=== PATIENT | female | born 2000 | race Caucasian/White ===

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

== ENCOUNTER → 2023-01-18 | Outpatient (REF) | payer OTHER ==
[2023-01-18 15:25] LABS: GC DNA AMPLIFICATION NEGATIVE (NEGATIVE)
== END ==
LOC: M LAB REF 13:02
PROVIDERS: ATTEND Registered Nurse
DX: Z11.3 Encounter for screening for infections with a predominantly sexual mode of transmission (principal)

== ENCOUNTER → 2023-10-14 | Outpatient (REF) | payer OTHER ==
[2023-10-14 15:13] LABS: BASO # 0.1 10^3/uL (0.0-0.2); BASO % 0.8 % (0.0-1.0); EOS # 0.1 10^3/uL (0.0-0.5); EOS % 1.6 % (0.0-3.0); HEMOGLOBIN 13.2 g/dl (12.0-15.5); LYMPH # 1.9 10^3/uL (1.5-5.0); LYMPH % 24.1 % (24.0-44.0); MEAN CORPUSCULAR HEMOGLOBIN 29.7 pg (27.0-33.0); MEAN CORPUSCULAR VOLUME 90.1 fl (80.0-96.0); MONO # 0.6 10^3/uL (0.0-0.8); MONO % 7.4 % (2.0-8.0); NEUTROPHILS # 5.1 10^3/uL (1.5-8.5); NEUTROPHILS % 65.8 % (36.0-66.0); PLATELET COUNT, AUTOMATED 309 10^3/uL (150-450); RED BLOOD COUNT 4.44 10^6/uL (4.00-5.40); WHITE BLOOD COUNT 7.7 10^3/uL (4.0-10.0)
[2023-10-14 15:24] LABS: INR 1.11; PARTIAL THROMBOPLASTIN TIME 33.8 SECONDS (24.8-34.2)
[2023-10-14 15:41] LABS: ALBUMIN 3.8 G/DL (3.2-5.2); ALKALINE PHOSPHATASE 43 U/L (46-116); ALT/SGPT 32 U/L (7.0-40); AST/SGOT 24 U/L (<34); BILIRUBIN,TOTAL 0.4 MG/DL (0.3-1.2); BLOOD UREA NITROGEN 8 MG/DL (9-23); CALCIUM LEVEL 9.9 MG/DL (8.5-10.1); CARBON DIOXIDE LEVEL 26 MMOL/L (20-31); CHLORIDE LEVEL 105 MMOL/L (98-107); CREATININE FOR GFR 0.69 MG/DL (0.55-1.30); GLOMERULAR FILTRATION RATE > 60.0 (>60); GLUCOSE, FASTING 85 MG/DL (60-100); IRON (FE) 124 UG/DL (50-170); POTASSIUM SERUM 3.8 MMOL/L (3.5-5.1); SODIUM LEVEL 138 MMOL/L (136-145); TOTAL IRON BINDING CAPACITY 326 UG/DL (250-425); TOTAL PROTEIN 6.6 G/DL (5.7-8.2)
[2023-10-14 15:43] LABS: FERRITIN 28.9 NG/ML (7.3-270.7); FREE T4 0.99 NG/DL (0.89-1.76); HCG, SERUM QUALITATIVE NEGATIVE (NEGATIVE); THYROID STIMULATING HORMONE 0.569 uIU/ML (0.55-4.78)
== END ==
LOC: M LAB REF 14:56 → M LABDRAWP 14:56
PROVIDERS: ATTEND Nurse Practitioner Family
DX: N92.0 Excessive and frequent menstruation with regular cycle (principal)

== ENCOUNTER → 2023-11-05 | Outpatient (CLI) | payer OTHER | LOC: M WHC 12:15 | PROVIDERS: ATTEND Nurse Practitioner Family | DX: N92.0 Excessive and frequent menstruation with regular cycle (principal) ==

== ENCOUNTER 2024-03-12 18:21 | Inpatient (IN) | payer BC, MEDICAID, OTHER ==
[~2024-03-12] VITALS: Ht 157.5 cm; Wt 50.9 kg
[2024-03-12 19:09] LABS: HEMATOCRIT 39.1 % (36.0-47.0); HEMOGLOBIN 13.3 g/dl (12.0-15.5); MEAN CORPUSCULAR HEMOGLOBIN 30.4 pg (27.0-33.0); MEAN CORPUSCULAR VOLUME 89.3 fl (80.0-96.0); PLATELET COUNT, AUTOMATED 320 10^3/uL (150-450); RED BLOOD COUNT 4.38 10^6/uL (4.00-5.40); WHITE BLOOD COUNT 13.5 10^3/uL (4.0-10.0)
[2024-03-12 19:31] LABS: AMPHETAMINES LEVEL URINE NEGATIVE (NEGATIVE); BARBITURATES URINE NEGATIVE (NEGATIVE); BENZODIAZEPINES URINE NEGATIVE (NEGATIVE); COCAINE METABOLITE URINE NEGATIVE (NEGATIVE); METHADONE URINE NEGATIVE (NEGATIVE); OPIATES URINE NEGATIVE (NEGATIVE); PHENCYCLIDINE URINE NEGATIVE (NEGATIVE)
[2024-03-12 19:34] LABS: CANNABINOIDS URINE POSITIVE (NEGATIVE); ETHYL ALCOHOL (ETHANOL) 0.004 % (0.000-0.010)
[2024-03-12 19:35] LABS: SALICYLATE LEVEL < 3.0 MG/DL (<30)
[2024-03-12 19:36] LABS: ALBUMIN 4.8 G/DL (3.2-5.2); ALKALINE PHOSPHATASE 50 U/L (46-116); ALT/SGPT 18 U/L (7.0-40); AST/SGOT 15 U/L (<34); BILIRUBIN,DIRECT 0.2 MG/DL (<0.4); BILIRUBIN,TOTAL 0.7 MG/DL (0.3-1.2); BLOOD UREA NITROGEN 9 MG/DL (9-23); CALCIUM LEVEL 10.1 MG/DL (8.5-10.1); CARBON DIOXIDE LEVEL 22 MMOL/L (20-31); CHLORIDE LEVEL 106 MMOL/L (98-107); CREATININE FOR GFR 0.69 MG/DL (0.55-1.30); GLOMERULAR FILTRATION RATE > 60.0 (>60); GLUCOSE, FASTING 84 MG/DL (60-100); POTASSIUM SERUM 3.7 MMOL/L (3.5-5.1); SODIUM LEVEL 137 MMOL/L (136-145); TOTAL PROTEIN 7.6 G/DL (5.7-8.2)
[2024-03-12 19:37] LABS: THYROID STIMULATING HORMONE 1.078 uIU/ML (0.55-4.78)
[2024-03-12] MEDS ORDERED: MOM 30ML SUSPENSION UDC PO PRN (20:45)
[2024-03-12] MEDS ORDERED: MAALOX 30 ML SUSP *UDC PO PRN (20:45)
[2024-03-12] MEDS ORDERED: IBUPROFEN 400MG TAB PO PRN (20:45)
[2024-03-12] MEDS ORDERED: ACETAMINOPHEN TAB 650MG DOSE (2X325MG) PO PRN (20:45)
[2024-03-12] MEDS ORDERED: OLANZapine 5 MG TAB PO PRN (20:45)
[2024-03-12] MEDS ORDERED: FLUO-290 PO (22:38)
[2024-03-12] MEDS ORDERED: HYDR1CAP25 PO (22:38)
[2024-03-12] MEDS ORDERED: ARIP10TA32 PO (22:38)
[2024-03-12] MEDS ORDERED: HOME MED LIST COMPLETE! XX SCH (22:40)
[2024-03-12 22:41] VITALS: BP 102/64; TEMP 98; O2SAT 99
[2024-03-12] MEDS: traZODone 50 MG TAB PO PRN (22:47)
[2024-03-13 06:21] VITALS: BP 100/60; TEMP 97; O2SAT 99
[2024-03-13] MEDS: NICOTINE 14 MG/24 HR TRANSDERMAL TD PRN (08:48)
[2024-03-13 16:30] VITALS: BP 120/65; TEMP 98.8; O2SAT 100
[2024-03-13] MEDS: FLUoxetine 20MG CAP PO SCH (21:37)
[2024-03-13] MEDS: ARIPiprazole 10 MG TAB PO SCH (21:37)
[2024-03-14 06:49] VITALS: BP 113/55; TEMP 97.9; O2SAT 98
[2024-03-14] MEDS: diphenhydrAMINE 25MG CAP PO PRN (12:04)
[2024-03-14 15:59] VITALS: BP 131/67; TEMP 98.8; O2SAT 98
[2024-03-15 06:32] VITALS: BP 117/58; TEMP 98.9; O2SAT 97
[2024-03-15 16:07] VITALS: BP 118/61; TEMP 98.9; O2SAT 100
[2024-03-16 06:13] VITALS: BP 126/72; TEMP 98; O2SAT 99
== END 2024-03-16 11:39 | disposition home or self-care (01) | DRG 753 ==
LOC: M ED 18:21 → M ED INP 20:43 → M PSY 22:20
PROVIDERS: ADMIT Psychiatry & Neurology Psychiatry; ATTEND Psychiatry & Neurology Psychiatry
DX: F31.81 Bipolar II disorder (principal); F43.25 Adjustment disorder with mixed disturbance of emotions and conduct; F17.200 Nicotine dependence, unspecified, uncomplicated; R45.851 Suicidal ideations; Z79.899 Other long term (current) drug therapy

== ENCOUNTER → 2025-01-14 | Outpatient (CLI) | payer OTHER ==
[~2025-01-14] MED LIST changes: +ARIP10TA63 PO; +FLUO-290 PO; +HYDR1CAP25 PO
[2025-01-14 17:14] LABS: BASO # 0.1 10^3/uL (0.0-0.2); BASO % 1.0 % (0.0-1.0); EOS # 0.2 10^3/uL (0.0-0.5); EOS % 1.8 % (0.0-3.0); LYMPH # 1.8 10^3/uL (1.5-5.0); LYMPH % 21.5 % (24.0-44.0); MONO # 0.7 10^3/uL (0.0-0.8); MONO % 8.8 % (2.0-8.0); NEUTROPHILS # 5.5 10^3/uL (1.5-8.5); NEUTROPHILS % 66.7 % (36.0-66.0); PLATELET COUNT, AUTOMATED 347 10^3/uL (150-450)
[2025-01-14 17:44] LABS: IRON (FE) 138 UG/DL (50-170); PERCENT SATURATION 42.2 % (13.2-45.0)
[2025-01-14 17:45] LABS: ALT/SGPT 22 U/L (7.0-40); AST/SGOT 22 U/L (<34); CALCIUM LEVEL 9.2 MG/DL (8.5-10.1); CARBON DIOXIDE LEVEL 25 MMOL/L (20-31); CHLORIDE LEVEL 106 MMOL/L (98-107); CREATININE FOR GFR 0.75 MG/DL (0.55-1.30); GLOMERULAR FILTRATION RATE > 90.0 (>60); POTASSIUM SERUM 4.2 MMOL/L (3.5-5.1); SODIUM LEVEL 144 MMOL/L (136-145)
[2025-01-14 17:47] LABS: FREE T4 1.10 NG/DL (0.89-1.76)
[2025-01-14 17:49] LABS: HCG, SERUM QUALITATIVE NEGATIVE (NEGATIVE)
== END ==
LOC: M PLALAB 16:10
PROVIDERS: ATTEND Nurse Practitioner Family
DX: N92.0 Excessive and frequent menstruation with regular cycle (principal)

== ENCOUNTER → 2025-02-08 | Outpatient (CLI) | payer OTHER | LOC: M WHC 11:40 | PROVIDERS: ATTEND Nurse Practitioner Family | DX: N92.0 Excessive and frequent menstruation with regular cycle (principal); Z97.5 Presence of (intrauterine) contraceptive device; Q51.3 Bicornate uterus ==

== ENCOUNTER → 2025-03-31 | Outpatient (CLI) | payer BC, OTHER ==
[2025-03-31 13:15] LABS: PROLACTIN 6.06 NG/ML
[2025-03-31 13:16] LABS: FREE T4 1.13 NG/DL (0.89-1.76)
[2025-03-31 13:27] LABS: ESTIMATED AVERAGE GLUCOSE 103.0 MG/DL (60-110)
[2025-04-01 10:12] LABS: DEHYDROEPIANDROSTERONE SULFATE 59 mcg/dL (14-349)
== END ==
LOC: M PLALAB 07:57
PROVIDERS: ATTEND Nurse Practitioner Family
DX: N92.6 Irregular menstruation, unspecified (principal)